=== PATIENT | female | born 1980 | race Caucasian/White ===

== ENCOUNTER → 2022-10-08 | Outpatient (CLI) | payer OTHER ==
[~2022-10-08] MED LIST: SINGULAIR10 MG PO
== END ==
LOC: RAD 13:24
DX: S99.922A Unspecified injury of left foot, initial encounter (principal); X58.XXXA Exposure to other specified factors, initial encounter

== ENCOUNTER → 2024-01-02 | Outpatient (CLI) | payer OTHER | LOC: MAMMO 08:52 | DX: Z12.31 Encounter for screening mammogram for malignant neoplasm of breast (principal); Z98.82 Breast implant status ==

== ENCOUNTER → 2025-01-05 | Outpatient (CLI) | payer OTHER | LOC: MAMMO 07:00 | DX: N63.12 Unspecified lump in the right breast, upper inner quadrant (principal) ==